=== PATIENT | male | born 1975 | race Two or more races ===

== ENCOUNTER 2016-09-10 06:33 | Observation (INO) | payer BC, MEDICAID ==
[2016-09-10] VITALS (8 sets, daily range): BP systolic 142–157; BP diastolic 89–97; PULSE 77–94; RESP 16–18; TEMP 96.6–99.2; O2SAT 95–100
[~2016-09-10] VITALS: Ht 165.1 cm; Wt 125.2 kg
[~2016-09-10 06:33] MED LIST: FLUT1SPR5 EACH NARE
[2016-09-10] MEDS ORDERED: METOPROLOL TARTRATE 25 MG TAB PO PRN (07:00)
[2016-09-10] MEDS ORDERED: CHLORHEXIDINE GLUCONATE 2 % 1 PACK (2 CLOTHS) TOPICAL PRN (07:00)
[2016-09-10] MEDS ORDERED: INSULIN HUMAN REGULAR 1,000 UNITS/10 ML VIAL SQ PRN (07:00)
[2016-09-10] MEDS ORDERED: SODIUM CHLORID 0.9% 500 ML IV PRN (07:00)
[2016-09-10] MEDS ORDERED: POVIDONE IODINE 5% (ANTISEPSIS KIT) 4 APPLICATIONS EACH NARE PRN (07:00)
[2016-09-10] MEDS ORDERED: LIDOCAINE 1%/EPINEPHrine 1:100,000 SOLN 30 ML VIAL ONE (07:11)
[2016-09-10] MEDS ORDERED: OXYMETAZOLINE HCL 0.05% 15 ML NASAL SPRAY ONE (07:11)
[2016-09-10] MEDS ORDERED: BACITRACIN TOP OINT 15 GM TUBE ONE (07:12)
[2016-09-10] MEDS ORDERED: GUAI1SYP15 PO (08:20)
[2016-09-10] MEDS ORDERED: [UNRECOGNIZED DRUG - REMARK] PO (08:20)
[2016-09-10] MEDS: LACTATED RINGER'S 1000 ML IV PRN ×2 (08:25→09:25)
[2016-09-10] MEDS: AMPICILLIN/SULBAC 3 GM/NS 100 ML IV PRN ×4 (08:31→09:01)
[2016-09-10] MEDS ORDERED: MIDAZOLAM HCL 2 MG/2 ML VIAL ONE (08:34)
[2016-09-10] MEDS ORDERED: DO NOT ADM ANY ANTICOAGULANT DRUGS PRN (10:05)
[2016-09-10] MEDS ORDERED: ONDANSETRON HCL 4 MG/2 ML VIAL IV PUSH ONE (12:00)
[2016-09-10] MEDS ORDERED: PROPOFOL 200 MG/20 ML AMP IV ONE (12:00)
[2016-09-10] MEDS: LACTATED RINGER'S 1000 ML INJ 1,000 ML IV SCH (15:00)
[2016-09-10] MEDS ORDERED: ONDANSETRON HCL 4 MG/2 ML VIAL IV PRN (15:00)
[2016-09-10] MEDS: ACETAMINOPHEN 325MG/HYDROcodone 7.5MG/15ML UDC PO PRN ×3 (16:31→20:50)
[2016-09-10] MEDS: AMPICILLIN/SULBAC 3 GM/NS 100 ML IV SCH ×2 (16:33)
[2016-09-11] VITALS: BP 141/81; PULSE 97; RESP 20; TEMP 98.4; O2SAT 98
[2016-09-11] MEDS: ACETAMINOPHEN 325MG/HYDROcodone 7.5MG/15ML UDC PO PRN ×3 (00:36→08:39)
[2016-09-11] MEDS: AMPICILLIN/SULBAC 3 GM/NS 100 ML IV SCH ×2 (00:37)
[2016-09-11] MEDS: LACTATED RINGER'S 1000 ML INJ 1,000 ML IV SCH (01:00)
[2016-09-11 08:00] VITALS: BP 149/98; PULSE 85; RESP 20; TEMP 98.1; O2SAT 95
--- NOTE | 2016-09-25 07:20 | MP ---
cc: GEORGE ARAIZA M.D. DATE OF SURGERY 09/10/[address] George araiza PREOPERATIVE DIAGNOSIS 1. Adenotonsillar hypertrophy 2. Chronic tonsillitis 3. Nasal airway obstruction 4. Nasal septal deviation 5. Hypertrophy of inferior turbinates 6. Obstructive sleep apnea POSTOPERATIVE DIAGNOSIS 1. Adenotonsillar hypertrophy 2. Chronic tonsillitis 3. Nasal airway obstruction 4. Nasal septal deviation 5. Hypertrophy of inferior turbinates 6. Obstructive sleep apnea OPERATION PERFORMED 1. Open repair nasal septal fracture. 2. Bilateral submucosal resection of the inferior turbinates. 3. Adenotonsillectomy INDICATIONS The indications are documented in the history and physical. DESCRIPTION OF OPERATION The patient was taken to OR #2 and placed in the supine position. Following induction of general anesthesia and intubation, the nose was packed bilaterally with cotton pledgets saturated in 0.05% Oxymetazoline. The septal mucosa and inferior turbinates were injected with a total of 10 mL of 1% Xylocaine with epinephrine 1:100,000. He was then prepped and draped for surgery. The packing was removed and a hemitransfixion incision was made in the left nasal vestibule. Through this incision, the septal mucosa was elevated bilaterally as far as the junction of the bony cartilaginous septum. This exposed the quadrangular cartilage which showed evidence of old septal fracture. A cumulative area of 2 x 2.5 cm was removed preserving 1.5 cm dorsal and caudal cartilaginous struts. The mucosa was elevated from the bony septum and the maxillary crest and these were removed using Crane-Karl forceps on the bony septum and a 6-mm Paul chisel on the maxillary crest. The incision was then closed with a running suture of 4-0 chromic and the mucosal layers of septum were approximated to each other with a quilting stitch of 4-0 plain gut. The inferior turbinates were addressed next. They were fractured out medially and stab incisions made on the anterior end of each of the inferior turbinates. At each turbinate using a Tracy elevator, a pocket was opened submucosally along the medial surface of the conchal bone. The left side was addressed first using the Mindjet power turbinate debrider. A 2.9-mm blade was advanced into the pocket and then was activated as it was slowly withdrawn debriding soft tissue from the medial surface of the conchal bone. It was then reinserted into the pocket and the second time it was withdrawn, it was activated with the bipolar cautery. Additional cautery was applied to the stab incision on the anterior end. The same technique was then used on the right inferior turbinates and the turbinate remnants were then re-lateralized to the lateral nasal wall. The nose was then packed with Merocel tampons coated in bacitracin ointment. The table was then turned 90 degrees and a shoulder roll, a Fabian head drape and a McIvor mouth gag were put in place. The tonsils were removed using the ArthroCare Coblator technique. Numerous sites of venous and arterial bleeding were then cauterized using the bipolar cautery. The adenoids were removed using the suction Bovie at 45 bianchi. When this was done, the stomach was aspirated of several cc's of clear gastric contents using a #18 [place] sump NG tube. The tube was then removed and the procedure was terminated. The patient was reversed from anesthesia and taken to recovery in good condition. There were no complications. Blood loss was 80 mL. MD GUS Smith/CELSO /1:05 PM /7:06 AM
== END 2016-09-11 09:00 | disposition home or self-care (01) ==
LOC: PHSDC 06:33 → UNDOADMOB 08:54 → HSDI 08:54 → PH3A 14:18
PROVIDERS: ADMIT Otolaryngology; ATTEND Otolaryngology
DX: J35.01 Chronic tonsillitis (principal); J35.3 Hypertrophy of tonsils with hypertrophy of adenoids; J98.8 Other specified respiratory disorders; J34.89 Other specified disorders of nose and nasal sinuses; J34.2 Deviated nasal septum; J34.3 Hypertrophy of nasal turbinates; G47.33 Obstructive sleep apnea (adult) (pediatric)
CPT/HCPCS: 00160; 00170; 21335; 30140; 42821; 88304; 94762; G0378; J0295; J2250; J2405; J3010; J7120